=== PATIENT | female | born 1990 | race African-American/Black ===

== ENCOUNTER 2017-07-18 14:19 | Emergency (ER) | payer OTHER ==
[~2017-07-18] VITALS: Ht 162.6 cm; Wt 52.0 kg
[2017-07-18 15:38] VITALS: BP 118/82
== END 2017-07-18 18:00 | disposition left against medical advice (07) ==
LOC: ER 14:47
DX: R07.9 Chest pain, unspecified (principal); R10.9 Unspecified abdominal pain; Z53.21 Procedure and treatment not carried out due to patient leaving prior to being seen by health care provider